=== PATIENT | female | born 1960 | race Caucasian/White ===

== ENCOUNTER 2018-05-26 03:56 | Observation (INO) | payer OTHER ==
[~2018-05-26] VITALS: Ht 177.8 cm; Wt 98.6 kg
[2018-05-26] MEDS ORDERED: SYNTHROID200 MC1 PO (04:06)
[2018-05-26] MEDS ORDERED: PRINIVIL10 MG PO (04:06)
[2018-05-26] MEDS ORDERED: GLUCOPHAGE1000 MG PO (04:07)
[2018-05-26] MEDS ORDERED: CELEXA20 MG PO (04:07)
[2018-05-26 04:15] VITALS: BP 117/62
[2018-05-26 04:41] LABS: BASOPHILS 0.2 % (0-2); EOSINOPHILS 0.5 % (0-7); HEMATOCRIT 41.1 % (36.0-48.0); HEMOGLOBIN 13.9 g/dL (12-16); IMMATURE GRANULOCYTES 0.3 % (0-5); LYMPHOCYTES 12.8 % (15-50); MCHC 33.8 g/dL (31.0-37.0); MCV 82.7 fL (80.0-100.0); MEAN PLATELET VOLUME 9.8 fL (7.4-10.4); MONOCYTES 5.8 % (2-11); NEUTROPHILS 80.4 % (40-80); PLATELET COUNT 234 10x3/uL (130-400); RBC 4.97 10x6/uL (4.00-5.40); RDW 13.5 % (11.5-14.5); WBC 10.4 10x3/uL (4.8-10.8)
[2018-05-26 04:53] LABS: INR 1.02 (0.85-1.17); PROTIME 12.9 SECONDS (11.6-15.0)
[2018-05-26 04:54] LABS: APTT 31.2 SECONDS (22.8-39.4)
--- NOTE | 2018-05-26 04:57 | NUR ---
NITRO SL GIVEN AT 0436, PAIN IS NOW DOWN TO A 2. NO DISTRESS NOTED.
[2018-05-26 04:58] LABS: ALKALINE PHOSPHATASE 54 U/L (46-116); ALT (SGPT) 31 U/L (10-68); BILIRUBIN - TOTAL 0.55 mg/dL (0.2-1.3); CALC OSMOLALITY 283 mosm/kg (275-300); CALCIUM 9.2 mg/dL (8.5-10.1); CARBON DIOXIDE 30.6 mmol/L (21.0-32.0); CHLORIDE - SERUM 102 mmol/L (98-107); CREATININE - SERUM 0.9 mg/dL (0.6-1.3); GLUCOSE 140 mg/dL (74-106); PROTEIN - SERUM 7.7 g/dL (6.4-8.2); SODIUM 140 mmol/L (136-145); UREA NITROGEN 21 mg/dL (7-18); eGFR NON AFRICAN AMERICAN 68 mL/min (90-120)
[2018-05-26 05:00] VITALS: BP 105/60
[2018-05-26 05:08] LABS: AMYLASE - SERUM 60 U/L (25-115); CREATINE KINASE 105 UL (21-215); LIPASE 281 U/L (73-393); MAGNESIUM - SERUM 1.9 mg/dL (1.8-2.4); TROPONIN-I < 0.017 ng/mL (0.000-0.060)
--- NOTE | 2018-05-26 05:26 | NUR ---
PAIN LEVEL IS AT A 0 AT THIS TIME, NO COMPLAINTS VOICED.
[2018-05-26 05:45] VITALS: BP 118/61
[2018-05-26 06:40] VITALS: Ht 177.8 cm; Wt 98.6 kg
[2018-05-26 07:00] VITALS: BP 126/63
--- NOTE | 2018-05-26 07:15 | NUR ---
HAND-OFF REPORT RECEIVED FROM OFF GOING NURSE SUSAN HERNANDEZ. PT OBSERVED SITTING UPRIGHT IN BED, RESPIRATIONS EVEN AND UNLABORED. FAMILY AT THE BEDSIDE. CALL LIGHT IN REACH. DR. PAYTON AT THE BEDSIDE THIS AM TO SEE PT FOR ORDERED CONSULT.
--- NOTE | 2018-05-26 07:36 | NUR ---
WILL ADMINISTER SYNTHROID UPON ARRIVAL TO ED. SPOKE WITH BRENNA IN PHARMACY TO REQUEST MEDICATION AT APPROX. 0725.
[2018-05-26 08:01] VITALS: BP 134/68
--- NOTE | 2018-05-26 08:09 | NUR ---
PT STATED TO NURSE THAT SHE WANTED TO GO HOME AND DID NOT WANT TO HAVE PROCEDURE PERFORMED TODAY PREVIOUSLY DISCUSSED WITH DR. PAYTON. MERLINE, CARDIOLOGY COMMERCIAL SALES SPECIALIST IN THE ED AND ASKED TO SPEAK WITH PT AT THIS TIME.
--- NOTE | 2018-05-26 08:41 | NUR ---
PT REFUSING CATH PROCEDURE AT THIS TIME AFTER SPEAKING WITH WENDY RICK. SURGERY AIDE NOTIFIED WHO STATES THAT THEY WILL NOTIFY DR. PAYTON. DR. ANTON, ADMITTING PHYSICIAN, NOTIFIED OF THE ABOVE. DR. ANTON STATES THAT HIS CLASSROOM INSTRUCTIONAL AIDE WILL SEE PT SHORTLY AND DISCUSS PT STAYING OF IF SHE WISHES TO LEAVE AMA.
--- NOTE | 2018-05-26 08:53 | NUR ---
AFTER SPEAKING WITH DR. ANTON'S PATROL DEPUTY SHERIFF, PT DECIDED TO LEAVE AMA. CHANGE NURSE JOSELITO FARMER, SUSAN PRESENT TO WITNESS PT SIGN AMA FORM.
--- NOTE | 2018-05-26 08:56 | NUR ---
PT LEFT AMA AT 0855, DECLINED DISCHARGE VS. PARATRANSIT DRIVER NOTIFIED.
== END 2018-05-26 08:55 | disposition left against medical advice (07) ==
LOC: D.ER 03:56 → D.EDHOLD 05:26 → OBSVTIME 05:26 → D.EDHOLD 08:55
PROVIDERS: Family Medicine; ADMIT Internal Medicine Nephrology
DX: I20.0 Unstable angina (principal); N17.9 Acute kidney failure, unspecified; I10 Essential (primary) hypertension; E11.9 Type 2 diabetes mellitus without complications; R61 Generalized hyperhidrosis

== ENCOUNTER 2019-05-12 02:19 | Emergency (ER) | payer OTHER ==
[~2019-05-12] VITALS: Ht 177.8 cm; Wt 100.0 kg
[~2019-05-12 02:19] MED LIST: CELEXA20 MG PO; GLUCOPHAGE1000 MG PO; PRINIVIL10 MG PO; SYNTHROID200 MC1 PO
[2019-05-12 02:27] VITALS: Ht 177.8 cm; Wt 100.0 kg
[2019-05-12] MEDS ORDERED: NEXIUM40 MG PO (02:29)
[2019-05-12 02:41] LABS: BASOPHILS 0.2 % (0-2); EOSINOPHILS 0.8 % (0-7); HEMATOCRIT 41.6 % (36.0-48.0); IMMATURE GRANULOCYTES 0.1 % (0-5); LYMPHOCYTES 13.9 % (15-50); MCH 28.6 pg (26.0-34.0); MCHC 33.7 g/dL (31.0-37.0); MCV 84.9 fL (80.0-100.0); MEAN PLATELET VOLUME 9.6 fL (7.4-10.4); MONOCYTES 5.7 % (2-11); NEUTROPHILS 79.3 % (40-80); PLATELET COUNT 231 10x3/uL (130-400); RDW 13.4 % (11.5-14.5); WBC 10.4 10x3/uL (4.8-10.8)
[2019-05-12 02:51] LABS: APPEARANCE CLEAR (CLEAR); BILIRUBIN NEGATIVE (NEGATIVE); COLOR YELLOW (YELLOW); GLUCOSE NEGATIVE (NEGATIVE); KETONE NEGATIVE (NEGATIVE); NITRITE NEGATIVE (NEGATIVE); PROTEIN NEGATIVE (NEGATIVE); UROBILINOGEN NORMAL (NORMAL)
[2019-05-12 02:52] LABS: BACTERIA NONE SEEN /hpf (NEGATIVE); EPITHELIAL CELLS 0-5 /hpf (0-5); RED CELLS - URINE NONE SEEN /hpf (0-5); WHITE CELLS - URINE 0-5 /hpf (NEGATIVE)
[2019-05-12 02:55] LABS: CALC OSMOLALITY 286 mosm/kg (275-300); CHLORIDE - SERUM 101 mmol/L (98-107); CREATININE - SERUM 0.9 mg/dL (0.6-1.3); GLUCOSE 168 mg/dL (74-106); POTASSIUM - SERUM 3.8 mmol/L (3.5-5.1); SODIUM 141 mmol/L (136-145); UREA NITROGEN 18 mg/dL (7-18); eGFR NON AFRICAN AMERICAN 68 mL/min (90-120)
[2019-05-12 03:04] LABS: ALBUMIN 4.2 g/dL (3.4-5.0); ALKALINE PHOSPHATASE 62 U/L (46-116); ALT (SGPT) 31 U/L (10-68); BILIRUBIN - TOTAL 0.67 mg/dL (0.2-1.3); LIPASE 315 U/L (73-393); PROTEIN - SERUM 8.2 g/dL (6.4-8.2); THYROID STIMULATING HORMONE 2.28 uIU/mL (0.36-3.74)
[2019-05-12 03:05] LABS: TROPONIN-I < 0.017 ng/mL (0.000-0.060)
[2019-05-12] MEDS ORDERED: ZOFRAN ODT4 MG/UDTAB PO (05:01)
[2019-05-12] MEDS ORDERED: HYDROCODON-ACE1 EAC7 PO (05:01)
[2019-05-12 05:56] VITALS: BP 127/76
[2019-05-16 12:02] VITALS: Ht 177.8 cm; Wt 100.0 kg
== END 2019-05-12 05:56 | disposition home or self-care (01) ==
LOC: D.ER 02:19
PROVIDERS: Family Medicine
DX: K80.20 Calculus of gallbladder without cholecystitis without obstruction (principal); K83.8 Other specified diseases of biliary tract; I10 Essential (primary) hypertension

== ENCOUNTER 2019-05-16 07:33 | Inpatient (IN) | payer OTHER ==
[2019-05-16] VITALS (7 sets, daily range): BP systolic 98–151; BP diastolic 45–77; Ht 177.8 cm; Wt 100.0 kg
[~2019-05-16] VITALS: Ht 177.8 cm; Wt 100.0 kg
[~2019-05-16 07:33] MED LIST changes: +HYDROCODON-ACE1 EAC7 PO; +NEXIUM40 MG PO; +ZOFRAN ODT4 MG/UDTAB PO
[2019-05-16 08:08] LABS: BASOPHILS 0.3 % (0-2); HEMATOCRIT 42.2 % (36.0-48.0); IMMATURE GRANULOCYTES 0.1 % (0-5); LYMPHOCYTES 26.9 % (15-50); MCH 28.5 pg (26.0-34.0); MCHC 33.2 g/dL (31.0-37.0); MCV 85.9 fL (80.0-100.0); MEAN PLATELET VOLUME 9.7 fL (7.4-10.4); MONOCYTES 6.2 % (2-11); NEUTROPHILS 65.5 % (40-80); PLATELET COUNT 254 10x3/uL (130-400); RBC 4.91 10x6/uL (4.00-5.40); RDW 13.5 % (11.5-14.5); WBC 7.7 10x3/uL (4.8-10.8)
[2019-05-16 08:13] LABS: CALC OSMOLALITY 284 mosm/kg (275-300); CALCIUM 9.1 mg/dL (8.5-10.1); CARBON DIOXIDE 28.9 mmol/L (21.0-32.0); CHLORIDE - SERUM 101 mmol/L (98-107); GLUCOSE 157 mg/dL (74-106); POTASSIUM - SERUM 4.1 mmol/L (3.5-5.1); SODIUM 140 mmol/L (136-145); UREA NITROGEN 21 mg/dL (7-18); eGFR NON AFRICAN AMERICAN 60 mL/min (90-120)
[2019-05-16 08:22] LABS: ALBUMIN 4.3 g/dL (3.4-5.0); ALKALINE PHOSPHATASE 69 U/L (46-116); ALT (SGPT) 29 U/L (10-68); AMYLASE - SERUM 46 U/L (25-115); BILIRUBIN - TOTAL 0.84 mg/dL (0.2-1.3); LIPASE 196 U/L (73-393); PROTEIN - SERUM 8.1 g/dL (6.4-8.2); TROPONIN-I < 0.017 ng/mL (0.000-0.060)
[2019-05-16 09:17] LABS: APPEARANCE CLEAR (CLEAR); BILIRUBIN NEGATIVE (NEGATIVE); COLOR YELLOW (YELLOW); GLUCOSE NEGATIVE (NEGATIVE); KETONE NEGATIVE (NEGATIVE); NITRITE NEGATIVE (NEGATIVE); PROTEIN NEGATIVE (NEGATIVE); SPECIFIC GRAVITY 1.015 (1.005-1.020)
[2019-05-16 09:18] LABS: BACTERIA FEW /hpf (NEGATIVE); EPITHELIAL CELLS RARE /hpf (0-5); RED CELLS - URINE NONE SEEN /hpf (0-5); WHITE CELLS - URINE RARE /hpf (NEGATIVE)
[2019-05-16 11:27] LABS: INR 0.99 (0.85-1.17); PROTIME 12.6 SECONDS (11.6-15.0)
[2019-05-16 11:28] LABS: APTT 30.4 SECONDS (22.8-39.4)
--- NOTE | 2019-05-16 11:40 | MORECARE ---
CASE MANAGEMENT DISCHARGE SUMMARY PATIENT: HARRIETT AGUERO UNIT: [id number] ADM DATE: 05/16/19 AGE: 59 : 60 SEX: F ROOM/BED: D.2224 AUTHOR: YUNIER SMALL PHYSICIAN: REFERRING PHYSICIAN: DAVID GUZMAN MD DATE OF SERVICE: 05/16/19 Discharge Plan Patient Name: HARRIETT AGUERO Facility: [facility]:[place] : 1960 Planned Disposition: Home Anticipated Discharge Date: 05/18/19 Discharge Date: Expected LOS: 2 Initial Reviewer: [email or web address] Initial Review Date: 05/16/2019 Generated: 05/16/19 12:40 pm DCPIA - Discharge Planning Initial Assessment Updated by [email or web address]: Lesa Hemphill on 05/16/19 11:38 am * Is the patient Alert and Oriented? Yes * How many steps to enter\exit or inside your home? * PCP Dr[facility] Cueva in [facility] * Pharmacy [facility] in [place]. * Preadmission Environment Home with Family * ADLs Independent * Equipment Glucometer * List name and contact numbers for known caregivers / representatives who currently or will assist patient after discharge: Domenico Aguero - [phone] * Verbal permission to speak to the caregivers and representatives has been obtained from the patient. Yes * Community resources currently utilized None * Additional services required to return to the preadmission environment? No * Can the patient safely return to the preadmission environment? Yes * Has this patient been hospitalized within the prior 30 days at any hospital? No Patient Name: HARRIETT AGUERO Page [id number] at 1140 All edits/amendments must be made on the electronic document DICTATION DATE: 05/16/19 1140 E M ASSEMBLER: MEHDI 05/16/19 1140 RPT#: [id number] DC DATE: STATUS: ADM IN [facility] [address] [place] [address] END OF REPORT
[2019-05-16] MEDS ORDERED: PROMETRIUM100 MG PO (11:57)
[2019-05-16] MEDS ORDERED: HYDROCODON-ACE1 EAC7 PO (15:08)
--- NOTE | 2019-05-16 19:20 | NUR ---
IN BED WITH FAMILY AT BEDSIDE. ABLE TO VOICE ALL NEEDS. DENIES PAIN AT THIS TIME. IV TO RIGHT AC IS INFUSING PER ORDERS. NO S/S OF ANY ACUTE DISTRESS. WILL NOTE ANY CHANGE.
[2019-05-17 00:54] VITALS: BP 127/68
[2019-05-17 05:16] VITALS: BP 126/55
[2019-05-17 06:42] LABS: ALBUMIN 3.5 g/dL (3.4-5.0); ANION GAP 10.1 mmol/L (8-16); BILIRUBIN - TOTAL 1.13 mg/dL (0.2-1.3); CARBON DIOXIDE 28.9 mmol/L (21.0-32.0); CREATININE - SERUM 0.9 mg/dL (0.6-1.3); PROTEIN - SERUM 6.5 g/dL (6.4-8.2)
[2019-05-17 06:47] LABS: BASOPHILS 0.1 % (0-2); EOSINOPHILS 0.1 % (0-7); HEMATOCRIT 38.4 % (36.0-48.0); HEMOGLOBIN 12.6 g/dL (12-16); IMMATURE GRANULOCYTES 0.3 % (0-5); LYMPHOCYTES 13.5 % (15-50); MCHC 32.8 g/dL (31.0-37.0); MCV 85.3 fL (80.0-100.0); MEAN PLATELET VOLUME 9.9 fL (7.4-10.4); MONOCYTES 7.5 % (2-11); NEUTROPHILS 78.5 % (40-80); PLATELET COUNT 250 10x3/uL (130-400); RDW 13.6 % (11.5-14.5); WBC 11.2 10x3/uL (4.8-10.8)
--- NOTE | 2019-05-17 07:25 | NUR ---
DISCHARGE EDUCATION PROVIDED BOTH WRITTEN AND VERBAL. VERBALIZED UNDERSTANDING. DENIES FURTHER QUESTIONS. IV REMOVED FROM RIGHT AC WITH TIP INTACT. PATIENT DISCHARGED HOME WITH WITH ALL BELONGINGS.
--- NOTE | 2019-05-18 18:18 | MORECARE ---
CASE MANAGEMENT DISCHARGE SUMMARY PATIENT: HARRIETT AGUERO UNIT: [id number] ADM DATE: 05/16/19 AGE: 59 : 60 SEX: F ROOM/BED: D.2224 AUTHOR: STACI,DOC PHYSICIAN: REFERRING PHYSICIAN: DAVID GUZMAN MD DATE OF SERVICE: 05/18/19 Discharge Plan Patient Name: HARRIETT AGUERO Facility: [facility]:[place] : 1960 Planned Disposition: Home Anticipated Discharge Date: 05/18/19 Discharge Date: 05/17/2019 Expected LOS: 2 Initial Reviewer: [email or web address] Initial Review Date: 05/16/2019 Generated: 05/18/19 7:18 pm DCP- Discharge Planning Updated by [email or web address]: Lesa Hemphill on 05/16/19 10:[address] DC PLAN: Return home with independently. ANTICIPATED DC NEEDS: Denied known dc needs at time of assessment in ER. CM met with patient and her to complete initial dc planning assessment. CM educated patient on the CM role and verbal consent given by patient to complete assessment. CM verified patient's address, phone number, and emergency contact phone numbers. Patient lives at home with her . She reports she is independent in her care at home. At discharge patient plans to return home and feels this is a safe discharge. CM discussed availability of home health, rehab services, and medical equipment. Patient denied known discharge needs at this time. Transportation provider at discharge will be her . CM will continue to follow and will assist as needed with dc plans/needs. Lesa Hemphill RN, [facility] DCPIA - Discharge Planning Initial Assessment Updated by [email or web address]: Lesa Hemphill on 05/16/19 11:38 am * Is the patient Alert and Oriented? Yes * How many steps to enter\exit or inside your home? * PCP Dr[facility] Cueva in [facility] * Pharmacy [facility] in [place]. * Preadmission Environment Home with Family * ADLs Independent * Equipment Glucometer * List name and contact numbers for known caregivers / representatives who currently or will assist patient after discharge: Domenico Aguero - [phone] * Verbal permission to speak to the caregivers and representatives has been obtained from the patient. Yes * Community resources currently utilized None * Additional services required to return to the preadmission environment? No * Can the patient safely return to the preadmission environment? Yes * Has this patient been hospitalized within the prior 30 days at any hospital? No Last DP export: 05/16/19 10:40 am Patient Name: HARRIETT AGUERO Page [id number] at 1818 All edits/amendments must be made on the electronic document DICTATION DATE: 05/18/191816 REPAIR SERVICE DISPATCHER: MEHDI 05/18/191816 RPT#: [id number] DC DATE:05/17/19 STATUS: DIS IN [facility] [address] [place] [address] END OF REPORT
== END 2019-05-17 07:26 | disposition home or self-care (01) | DRG 419 ==
LOC: D.ER 07:33 → D.MS 08:59
PROVIDERS: Family Medicine; Surgery; ADMIT Family Medicine; ATTEND Family Medicine
PROC: BF101ZZ Fluoroscopy of Bile Ducts using Low Osmolar Contrast (ICD-10-PCS; 2019-05-16)
PROC: 0FT44ZZ Resection of Gallbladder, Percutaneous Endoscopic Approach (ICD-10-PCS; principal; 2019-05-16 11:45)
DX: K80.00 Calculus of gallbladder with acute cholecystitis without obstruction (principal); I10 Essential (primary) hypertension; E11.9 Type 2 diabetes mellitus without complications